=== PATIENT | male | born 1970 | race Caucasian/White ===

== ENCOUNTER → 2019-08-16 | Outpatient (CLI) | payer OTHER ==
--- NOTE | 2019-08-17 04:58 | MR ---
EXAMINATION TYPE: MR brain wo/w con DATE OF EXAM: 08/16/2019 COMPARISON: None HISTORY: diplopia TECHNIQUE: Multiplanar, multisequence images of the brain and brainstem is performed without and with IV contras t, utilizing 9 mL intravenous Gadavist . FINDINGS: Ventricles have fairly normal size. There is no mass effect nor midline shift. There is no sign of intracranial hemorrhage. There are a few mild linear areas of increased signal adjacent to th e lateral ventricles on the T2 and FLAIR images. There is a 3 mm focus of increased signal in the lef t posterior frontal lobe white matter. There is no evidence of a cortical infarct. Corpus callosum appears normal. Brainstem is intact. Cere bellum is intact. Sella turcica appears normal. IMPRESSION: Linear white matter signal changes adjacent to the lateral ventricles could relate to marilu e abnormal CSF flow phenomenon. No hydrocephalus. I do not see a pattern of demyelinating disease. No cortical infarct.
== END | disposition home or self-care (01) ==
LOC: RADMRIMAIN 17:31
PROVIDERS: ATTEND Ophthalmology
DX: R90.89 Other abnormal findings on diagnostic imaging of central nervous system (principal)
CPT/HCPCS: 70553; A9585

== ENCOUNTER → 2020-12-26 | Outpatient (CLI) | payer OTHER ==
[2020-12-26 19:41] LABS: Basophils # (A) 0.01 X 10*3/uL (0.00-0.10); Basophils % (A) 0.1 %; Eosinophils # (A) 0.01 X 10*3/uL (0.04-0.35); Eosinophils % (A) 0.1 %; HCT 50.5 % (39.6-50.0); HGB 16.8 g/dL (13.0-17.0); Lymphocytes # (A) 1.62 X 10*3/uL (0.90-5.00); Lymphocytes % (A) 12.3 %; MCH 30.2 pg (27.0-32.0); MCHC 33.3 g/dL (32.0-37.0); MCV 90.8 fL (80.0-97.0); Mean Platelet Volume 9.1 fL (9.5-12.2); Monocytes # (A) 0.69 X 10*3/uL (0.20-1.00); Monocytes % (A) 5.2 %; Neutrophils % (A) 81.9 %; Platelet Count 301 X 10*3/uL (140-440); RBC 5.56 X 10*6/uL (4.40-5.60); RDW 13.7 % (11.5-14.5); WBC 13.18 X 10*3/uL (4.50-10.00)
[2020-12-26 21:26] LABS: African American GFR (CKD) 90.2 (60.0-200.0); Albumin 5.2 g/dL (3.80-4.90); Albumin/Globulin Ratio 2.17 (1.60-3.17); Anion Gap 12.3 mmol/L (4.00-12.00); BUN/Creat Ratio 13.64 Ratio (12.00-20.00); Calcium 10.3 mg/dL (8.7-10.3); Carbon Dioxide 22.7 mmol/L (21.6-31.8); Chol/HDL Ratio 4.25; Globulin 2.4 g/dL (1.6-3.3); LDL Cholesterol,Calculated 174.8 mg/dL (0.0-131.0); Non-African American GFR(CKD) 77.9 (60.0-200.0); Potassium 4.6 mmol/L (3.5-5.5); Total Bilirubin 0.6 mg/dL (0.2-1.2); Total Protein 7.6 g/dL (6.2-8.2); VLDL Calculation 17.2 mg/dL (5.00-40.00)
== END | disposition home or self-care (01) ==
LOC: LABWHC1 09:50
PROVIDERS: ATTEND Family Medicine
DX: Z82.49 Family history of ischemic heart disease and other diseases of the circulatory system (principal)
CPT/HCPCS: 36415; 80053; 80061; 82306; 85025

== ENCOUNTER 2021-01-02 11:37 | Emergency (ER) | payer OTHER ==
[2021-01-02] MEDS ORDERED: HYDROmorphone 0.5 MG/0.5 ML SYRINGE IVP STA (12:22)
[2021-01-02] MEDS ORDERED: METOCLOPRAMIDE 5 MG/ML 2 ML VIAL IVP STA (12:22)
[2021-01-02] MEDS ORDERED: diphenhydrAMINE 50 MG/ML 1 ML VIAL IVP STA (12:22)
[2021-01-02] MEDS ORDERED: DEXAMETHASONE SOD PHOSPHATE 10 MG/ML 1 ML VIAL IV STA (12:23)
--- NOTE | 2021-01-02 12:30 | ED ---
Headache HPI - General Chief Complaint: Headache Stated Complaint: PCP sent/head pressure Time Seen by Provider: 01/02/21 11:40 Mode of arrival: ambulatory Limitations: no limitations - History of Present Illness Initial Comments: 50 year old previously healthy male presents to the emergency department with a headache 1 month. Reports to right occipital pressure which radiates up to the top of his head. He has been taking Aleve without improvement in his symptoms. States that he has not developed a throbbing sensation behind his right eye with visual changes in the right eye. Denies any fevers or chills. No neck pain. Does have a history of migraines however had a "procedure" several years ago which improved his symptoms. Denies any unilateral numbness or weakness. Does additionally admit to swelling in his right leg. Patient is a [employer] driver. Saw his primary care physician who completed blood work. He recommended to come to the emergency room for ultrasound and CT of his head. - Related Data Home Medications Medication Instructions Recorded Confirmed No Known Home Medications 03/08/14 03/08/14 Allergies Allergy/AdvReac Type Severity Reaction Status Date / Time No Known Allergies Allergy Verified 01/02/21 11:41 Review of Systems ROS Statement: Those systems with pertinent positive or pertinent negative responses have been documented in the HPI. ROS Other: All systems not noted in ROS Statement are negative. Past Medical History Past Medical History: Asthma Additional Past Medical History / Comment(s): back pain History of Any Multi-Drug Resistant Organisms: None Reported Past Surgical History: Orthopedic Surgery Additional Past Surgical History / Comment(s): right rotator cuff, carpel tunnel Past Psychological History: No Psychological Hx Reported Smoking Status: Never smoker Past Alcohol Use History: None Reported Past Drug Use History: None Reported General Exam Limitations: no limitations General appearance: alert, in no apparent distress Head exam: Present: atraumatic, normocephalic, other (tenderness, right occiput) Eye exam: Present: normal appearance, PERRL, EOMI. Absent: scleral icterus, conjunctival injection, periorbital swelling ENT exam: Present: normal exam, mucous membranes moist Neck exam: Present: normal inspection. Absent: tenderness, meningismus, lymphadenopathy Respiratory exam: Present: normal lung sounds bilaterally. Absent: respiratory distress, wheezes, rales, rhonchi, stridor Cardiovascular Exam: Present: regular rate, normal rhythm, normal heart sounds. Absent: systolic murmur, diastolic murmur, rubs, gallop, clicks GI/Abdominal exam: Present: soft, normal bowel sounds. Absent: distended, tenderness, guarding, rebound, rigid Extremities exam: Present: full ROM, normal capillary refill, pedal edema (mild right). Absent: tenderness, joint swelling, calf tenderness Back exam: Present: normal inspection Neurological exam: Present: alert, oriented X3, CN II-XII intact Psychiatric exam: Present: normal affect, normal mood Skin exam: Present: warm, dry, intact, normal color. Absent: rash Course Vital Signs 01/02/21 01/02/21 11:41 14:37 Temperature 98.4 F 98.0 F Pulse Rate 85 82 Respiratory 16 18 Rate Blood Pressure 113/75 116/80 O2 Sat by Pulse 94 L 95 Oximetry Medical Decision Making - Medical Decision Making Upon arrival patient was placed into room 32. Thorough history and physical exam was performed. Laboratory studies were conducted. Patient went for CT of his brain. Ultrasound is performed of the patient's right lower extremity. He was given a migraine cocktail. Laboratory studies are reviewed. CT of the patient's brain demonstrates no acute intracranial process. Patient does have spondylitic changes at C6 to C7. Mild spinal canal stenosis. Patient is reevaluated and reports to improvement in his headache. Doppler ultrasound of the right lower externally is negative for any DVT. Results are discussed the patient. Patient states he feels improved and is ready to be discharged at this time. He is instructed to follow-up with his primary care physician he should. Return to the emergency room for any new or worsening symptoms. Patient was discharged home in stable condition - Lab Data Result diagrams: 01/02/21 12:29 01/02/21 12:29 Lab Results 01/02/21 01/02/21 01/02/21 Range/Units 12:29 12:29 12:29 WBC 9.2 (3.8-10.6) k/uL RBC 5.61 (4.30-5.90) m/uL Hgb 17.2 (13.0-17.5) gm/dL Hct 49.2 (39.0-53.0) % MCV 87.7 (80.0-100.0) fL MCH 30.6 (25.0-35.0) pg MCHC 34.9 (31.0-37.0) g/dL RDW 13.2 (11.5-15.5) % Plt Count 261 (150-450) k/uL MPV 6.1 Neutrophils % 65 % Lymphocytes % 26 % Monocytes % 5 % Eosinophils % 3 % Basophils % 0 % Neutrophils # 6.0 (1.3-7.7) k/uL Lymphocytes # 2.4 (1.0-4.8) k/uL Monocytes # 0.4 (0-1.0) k/uL Eosinophils # 0.2 (0-0.7) k/uL Basophils # 0.0 (0-0.2) k/uL PT 9.6 (9.0-12.0) sec INR 0.9 (<1.2) APTT 22.9 (22.0-30.0) sec Sodium 138 (137-145) mmol/L Potassium 4.4 (3.5-5.1) mmol/L Chloride 103 (98-107) mmol/L Carbon Dioxide 24 (22-30) mmol/L Anion Gap 11 mmol/L BUN 14 (9-20) mg/dL Creatinine 0.84 (0.66-1.25) mg/dL Est GFR (CKD-EPI)AfAm >90 (>60 ml/min/1.73 sqM) Est GFR (CKD-EPI)NonAf >90 (>60 ml/min/1.73 sqM) Glucose 102 H (74-99) mg/dL Calcium 9.7 (8.4-10.2) mg/dL Total Bilirubin 0.8 (0.2-1.3) mg/dL AST 41 (17-59) U/L ALT 81 H (4-49) U/L Alkaline Phosphatase 125 (38-126) U/L Total Protein 7.8 (6.3-8.2) g/dL Albumin 4.7 (3.5-5.0) g/dL Disposition Clinical Impression: Cephalgia, Occipital neuralgia, Leg edema, right Disposition: HOME SELF-CARE Condition: Stable Instructions (If sedation given, give patient instructions): Acute Headache (ED) Additional Instructions: Please follow up with the neurologist for further treatment options. Follow up with your PCP in 2-4 days. Return to the ED for any new or worsening symptoms. Is patient prescribed a controlled substance at d/c from ED?: No Referrals: Deon Dickens MD [Primary Care Provider] - 1-2 days Time of Disposition: 14:21
[2021-01-02 12:45] LABS: Basophils % (A) 0 %; Eosinophils # (A) 0.2 k/uL (0-0.7); Eosinophils % (A) 3 %; HCT 49.2 % (39.0-53.0); HGB 17.2 gm/dL (13.0-17.5); Lymphocytes # (A) 2.4 k/uL (1.0-4.8); Lymphocytes % (A) 26 %; MCH 30.6 pg (25.0-35.0); MCHC 34.9 g/dL (31.0-37.0); MCV 87.7 fL (80.0-100.0); Mean Platelet Volume 6.1; Monocytes # (A) 0.4 k/uL (0-1.0); Monocytes % (A) 5 %; Neutrophils % (A) 65 %; Platelet Count 261 k/uL (150-450); RBC 5.61 m/uL (4.30-5.90); RDW 13.2 % (11.5-15.5); WBC 9.2 k/uL (3.8-10.6)
[2021-01-02 12:58] LABS: INR 0.9 (<1.2); Partial Thromboplastin Time 22.9 sec (22.0-30.0); Prothrombin Time 9.6 sec (9.0-12.0)
[2021-01-02 13:06] LABS: ALT 81 U/L (4-49); AST 41 U/L (17-59); African American GFR (CKD) >90 (>60 ml/min/1.73 sqM); Albumin 4.7 g/dL (3.5-5.0); Alkaline Phosphatase 125 U/L (38-126); Anion Gap 11 mmol/L; Blood Urea Nitrogen 14 mg/dL (9-20); Calcium 9.7 mg/dL (8.4-10.2); Carbon Dioxide 24 mmol/L (22-30); Chloride 103 mmol/L (98-107); Glucose 102 mg/dL (74-99); Non-African American GFR(CKD) >90 (>60 ml/min/1.73 sqM); Potassium 4.4 mmol/L (3.5-5.1); Sodium 138 mmol/L (137-145); Total Bilirubin 0.8 mg/dL (0.2-1.3); Total Protein 7.8 g/dL (6.3-8.2)
--- NOTE | 2021-01-02 13:16 | CT ---
EXAMINATION TYPE: CT brain reymundo guidry DATE OF EXAM: 01/02/2021 COMPARISON: None HISTORY: 50-year-old male headache, head pressure to back of head down neck for a month CT DLP: 1413.8 mGycm Automated exposure control for dose reduction was used. Technique: Examination of the head was done in axial plane without intravenous contrast. Coronal and sagittal reconstructions performed. CT of the cervical spine was obtained in axial plane without intravenous injection of contrast mater ial. Coronal and sagittal reformatted images were obtained from the axial views for evaluation of f ractures, spinal alignment and canal. FINDINGS: Head: There is no evidence of acute intracranial hemorrhage, acute ischemic changes, mass, mass-effect, or extra-axial fluid collection. There is no effacement of cerebral sulci or basal subarachnoid cister ns. There is no hydrocephalus. There is no midline shift. Murray-white matter distinction is preserv ed. Scattered mild to moderate mucosal thickening ethmoid air cells and mild within the right maxillary s inus. Mastoid air cells are well pneumatized. Orbits and globes appear intact. Cervical spine: No craniocervical junction abnormality, predental space widening, prevertebral soft tissue swelling. There is preserved alignment of the cervical spine. No acute fracture. Moderate discogenic degenerative change at C6-C7. Disc osteophyte complex tear causes at least mild s avani canal stenosis. Artifact from the patient's shoulders limits assessment of the spinal canal at this level. Scattered facet arthropathy throughout. Uncovertebral joint arthropathy lower cervical spine. Moderate right neural foraminal stenosis at C2-C3. Moderate to severe on both sides at C6-C7. Additio nal variable mild neural foraminal narrowing throughout. Hazy groundglass along the posterior aspect of the visualized upper lungs likely corresponds to depen dent atelectasis. Sagittal and coronal reformatted images confirm above findings. COMBINED IMPRESSION: 1. No acute intracranial abnormality seen. 2. No acute fracture or malalignment of the cervical spine. Moderate spondylotic change at C6-C7. Urvashi pect at least mild spinal canal stenosis here. Moderate to severe bilateral neural foraminal stenosis here. 3. Mild to moderate chronic ethmoid and maxillary sinus disease.
--- NOTE | 2021-01-02 13:53 | US ---
EXAMINATION TYPE: US venous doppler duplex LE RT DATE OF EXAM: 01/02/2021 12:25 PM COMPARISON: NONE CLINICAL HISTORY: leg pain, swelling. Right leg pain and swelling for 1 year, no h/o dvt SIDE PERFORMED: Right TECHNIQUE: The lower extremity deep venous system is examined utilizing real time linear array sonog svetlana with graded compression, doppler sonography and color-flow sonography. VESSELS IMAGED: Common Femoral Vein Deep Femoral Vein Greater Saphenous Vein * Femoral Vein Popliteal Vein Small Saphenous Vein * Proximal Calf Veins (* superficial vessels) Right Leg: Negative for DVT IMPRESSION: No evidence for DVT.
[2021-01-02 14:38] VITALS: BP 116/80; PULSE 82; RESP 18; TEMP 98
== END 2021-01-02 14:38 | disposition home or self-care (01) ==
LOC: EC 11:37
DX: M54.81 Occipital neuralgia (principal); R60.0 Localized edema; J45.909 Unspecified asthma, uncomplicated
CPT/HCPCS: 36415; 80053; 85025; 85610; 85730; 93971; 72125; 70450; 99284; 96374; 96375; J1200; J1100; J2765; J1170

== ENCOUNTER → 2025-01-30 | Outpatient (CLI) | payer OTHER ==
--- NOTE | 2025-01-30 11:01 | XR ---
EXAMINATION TYPE: XR foot complete RT DATE OF EXAM: 01/30/2025 10:49 AM INDICATION: Patient age:Male; 54 years old; Reason for study: M79.674 PAIN IN RIGHT TOE(S); [facility]. pain COMPARISON: None TECHNIQUE: The right foot was examined in the AP, oblique, and lateral projections. FINDINGS: No evidence of any acute osseous pathology. No evidence of soft tissue swelling. No osseous erosions . Joint space narrowing involving the first MTP joint. 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 IMPRESSION: 1. No evidence of acute fracture. 2. Mild degenerative change of the first MTP joint. [facility], , 01/30/2025 10:59 AM
== END | disposition home or self-care (01) ==
LOC: RADXRMAIN 10:39
PROVIDERS: ATTEND Student in an Organized Health Care Education/Training Program
DX: M19.071 Primary osteoarthritis, right ankle and foot (principal)